=== PATIENT | female | born 1985 | race Caucasian/White ===

== ENCOUNTER 2018-10-15 21:17 | Emergency (ER) | payer OTHER ==
[2018-10-15] MEDS: HYDROCODONE/APAP (5/325) TAB PO (21:47)
== END 2018-10-15 22:07 | disposition home or self-care (01) ==
LOC: FTE 21:17
DX: H60.91 Unspecified otitis externa, right ear (principal); J45.909 Unspecified asthma, uncomplicated
CPT/HCPCS: 99283; Z7502